=== PATIENT | male | born 1960 | race Caucasian/White ===

== ENCOUNTER 2020-12-15 03:58 | Inpatient (IN) ==
[2020-12-15 06:19] LABS: ABS Basophils 0.1 10^3/ul (0-0.2); ABS Eosinophils 0.2 10^3/ul (0-0.6); ABS Lymphocytes 1.4 10^3/ul (1.0-4.8); ABS Monocytes 0.5 10^3/ul (0-0.8); Eosinophil % 2.3 %; Hematocrit 43 % (42-52); Lymphocyte % 16.9 %; Mean Corpuscular HGB Conc 35 g/dL (31-36); Mean Corpuscular Hemoglobin 33 pg (27-31); Mean Corpuscular Volume 94 fL (80-94); Mean Platelet Volume 7.6 fL (7.4-10.4); Platelet Count 248 10^3/uL (150-450); Red Blood Count 4.57 10^6 /uL (4.18-5.48); Red Cell Distribution Width 12 % (10-15); White Blood Count 8.1 10^3/uL (3.5-10.8)
[2020-12-15 06:37] LABS: INR 1.05 (0.82-1.09)
[2020-12-15 06:42] LABS: ALT 17 U/L (7-52); AST 17 U/L (13-39); Albumin 4.4 g/dL (3.2-5.2); Albumin/Globulin Ratio 1.5 (1-3); Alkaline Phosphatase 73 U/L (34-104); Anion Gap 7 mmol/L (2-11); BUN/Creatinine Ratio 21.4 (8-20); Blood Urea Nitrogen 18 mg/dL (6-24); CO2 Carbon Dioxide 27 mmol/L (22-32); Calcium 9.6 mg/dL (8.6-10.3); Chloride 103 mmol/L (101-111); EGFR African American 112.8 (>60); EGFR Non-African American 93.2 (>60); Glucose 126 mg/dL (70-100); Potassium 4.8 mmol/L (3.5-5.0); Sodium 137 mmol/L (135-145); Total Protein 7.4 g/dL (6.4-8.9)
[2020-12-15 07:25] LABS: Cholesterol 165 mg/dL; HDL Cholesterol 33.1 mg/dL; LDL Cholesterol 84 mg/dL; Triglycerides 240 mg/dL
[2020-12-15] MEDS ORDERED: Al Hydrox/Mg Hydrox/Simet LIQ 30 ML UDC PO PRN (08:05)
[2020-12-15] MEDS ORDERED: NS 0.9% 1000 ml BAG 1,000 ML IV SCH ×4 (08:15→16:15)
[2020-12-15 09:38] LABS: Troponin I 0.21 ng/mL (<0.03)
[2020-12-15] MEDS ORDERED: diPHENhydraMINE 25 mg TAB PO PRN (10:23)
[2020-12-15 10:37] LABS: Troponin I 0.24 ng/mL (<0.03)
[2020-12-15 13:46] LABS: Troponin I 0.27 ng/mL (<0.03)
[2020-12-15] MEDS ORDERED: nitroGLYCERIN DRIP 25,000 MCG/250 ML BTL ONE (14:28)
[2020-12-15] MEDS ORDERED: fentaNYL 100 mcg/2 ml 50 MCG/ML VIAL ONE (14:28)
[2020-12-15] MEDS ORDERED: Heparin 2 UNITS/ML 1000 mls 2,000 ML IV ONE (14:28)
[2020-12-15] MEDS ORDERED: Lidocaine 1% VIAL 10 MG/ML VIAL ONE (14:28)
[2020-12-15] MEDS ORDERED: VERAPAMIL 2.5 MG/ML 2 ML VIAL ** 5 mg/2 ml ONE (14:28)
[2020-12-15] MEDS ORDERED: Midazolam 5 mg/5 ml VIAL 1 mg/ml 5 ml VIAL (5 mg) ONE ×2 (14:28→16:51)
[2020-12-15] MEDS ORDERED: Iohexol 350 (CONTRAST) 200 ML MDV IV ONE ×3 (14:28→15:47)
[2020-12-15] MEDS ORDERED: Heparin 1,000 UNIT/ML 10 ml (10,000 UNITS) CATHLAB/DIALYSIS ONE (14:28)
[2020-12-15] MEDS ORDERED: Bivalirudin 250 MG VIAL ONE ×3 (15:17→16:46)
[2020-12-15] MEDS ORDERED: Metoprolol Tartrate 5 mg VIAL 5 ml VIAL (1 mg/ml) ONE (16:30)
[2020-12-15] MEDS ORDERED: Furosemide 40 mg/4 ml IV VIAL ONE (16:31)
[2020-12-15] MEDS ORDERED: hydrALAZINE 20 mg/ml 1 ML Vial IV ONE (16:32)
[2020-12-15] MEDS ORDERED: Nitro 2% OINT (Nitroglycerin) 1 INCH/PAK ONE (16:33)
[2020-12-15] MEDS ORDERED: Adenosine 3 MG/ML 2 ml VIAL (6 mg) ONE (16:38)
[2020-12-15] MEDS ORDERED: Bivalirudin 250 MG in NS 0.9% 50 ML 50 ML IV SCH (17:00)
[2020-12-15] MEDS ORDERED: Heparin DRIP 25,000 UNITS BAG 25,000 UNITS/500 ML BAG IV SCH (18:30)
[2020-12-15] MEDS: Ondansetron 4 mg VIAL 2 MG/ML 2 ml VIAL IV PRN (19:25)
[2020-12-15] MEDS ORDERED: Morphine 2 MG/ML SYRINGE IV PRN (23:18)
[2020-12-16] MEDS ORDERED: Enalaprilat IV 1.25 mg/ml 1 ml VIAL (1.25 MG) IV ONE (01:45)
[2020-12-16] MEDS: Ondansetron 4 mg VIAL 2 MG/ML 2 ml VIAL IV PRN (02:22)
[2020-12-16] MEDS: Heparin 5000 UNITS/ML 1 mL VIAL IV SCH ×2 (02:57→11:22)
[2020-12-16 04:09] LABS: ABS Basophils 0.1 10^3/ul (0-0.2); ABS Eosinophils 0.1 10^3/ul (0-0.6); ABS Lymphocytes 1.8 10^3/ul (1.0-4.8); ABS Monocytes 0.7 10^3/ul (0-0.8); ABS Neutrophils 8.9 10^3/ul (1.5-7.7); Eosinophil % 0.6 %; Hematocrit 40 % (42-52); Hemoglobin 13.9 g/dL (14.0-18.0); Lymphocyte % 15.6 %; Mean Corpuscular HGB Conc 35 g/dL (31-36); Mean Corpuscular Hemoglobin 33 pg (27-31); Mean Corpuscular Volume 94 fL (80-94); Mean Platelet Volume 7.5 fL (7.4-10.4); Platelet Count 273 10^3/uL (150-450); Red Blood Count 4.27 10^6 /uL (4.18-5.48); Red Cell Distribution Width 12 % (10-15); White Blood Count 11.6 10^3/uL (3.5-10.8)
[2020-12-16 04:26] LABS: Calcium 8.9 mg/dL (8.6-10.3); EGFR Non-African American 95.8 (>60); Potassium 3.8 mmol/L (3.5-5.0)
[2020-12-16 10:43] LABS: Troponin I 3.71 ng/mL (<0.03)
[2020-12-16] MEDS ORDERED: Lidocaine 1% VIAL 10 MG/ML VIAL ONE ×2 (11:46→11:59)
[2020-12-16] MEDS ORDERED: Iohexol 350 (CONTRAST) 200 ML MDV IV ONE ×3 (11:46→13:47)
[2020-12-16] MEDS ORDERED: Heparin 2 UNITS/ML IVPREMIX 1,000 UNIT/500 ML BAG IV ONE ×2 (11:47→11:53)
[2020-12-16] MEDS ORDERED: Midazolam 5 mg/5 ml VIAL 1 mg/ml 5 ml VIAL (5 mg) ONE (11:59)
[2020-12-16] MEDS ORDERED: fentaNYL 100 mcg/2 ml 50 MCG/ML VIAL ONE (11:59)
[2020-12-16] MEDS ORDERED: VERAPAMIL 2.5 MG/ML 2 ML VIAL ** 5 mg/2 ml ONE (11:59)
[2020-12-16] MEDS ORDERED: Heparin 1,000 UNIT/ML 10 ml (10,000 UNITS) CATHLAB/DIALYSIS ONE (11:59)
[2020-12-16] MEDS ORDERED: Heparin 2 UNITS/ML 1000 mls 3,000 ML IV ONE (12:03)
[2020-12-16] MEDS ORDERED: nitroGLYCERIN DRIP 25,000 MCG/250 ML BTL ONE (12:03)
[2020-12-16] MEDS ORDERED: Bivalirudin 250 MG VIAL ONE ×2 (12:25→12:33)
[2020-12-16] MEDS ORDERED: NS 0.9% 1000 ml BAG 1,000 ML IV SCH (13:30)
[2020-12-17 04:52] LABS: ABS Eosinophils 0.2 10^3/ul (0-0.6); ABS Lymphocytes 1.8 10^3/ul (1.0-4.8); ABS Monocytes 0.7 10^3/ul (0-0.8); ABS Neutrophils 6.1 10^3/ul (1.5-7.7); Eosinophil % 1.7 %; Hematocrit 37 % (42-52); Lymphocyte % 20.6 %; Mean Corpuscular HGB Conc 35 g/dL (31-36); Mean Corpuscular Hemoglobin 33 pg (27-31); Mean Corpuscular Volume 94 fL (80-94); Mean Platelet Volume 7.3 fL (7.4-10.4); Nucleated Red Blood Cells % 0.1; Platelet Count 217 10^3/uL (150-450); Red Cell Distribution Width 13 % (10-15); White Blood Count 8.9 10^3/uL (3.5-10.8)
[2020-12-17 05:16] LABS: BUN/Creatinine Ratio 21.1 (8-20); Calcium 8.6 mg/dL (8.6-10.3); EGFR African American 104.2 (>60); EGFR Non-African American 86.1 (>60)
[2020-12-17 13:44] VITALS: BP 127/65
== END 2020-12-17 15:30 | disposition home or self-care (01) | DRG 174 ==
LOC: ED 03:58 → MEDTELE 08:05 → ICU 16:40
PROVIDERS: ADMIT Hospitalist; ATTEND Surgery Surgical Critical Care